=== PATIENT | female | born 1965 | race Caucasian/White ===

== ENCOUNTER → 2017-01-25 | Outpatient (CLI) | payer OTHER ==
--- NOTE | 2017-01-28 11:18 | MM ---
Reason for exam: screening (asymptomatic). Last mammogram was performed 6 years and 1 month ago. History: Family history of breast cancer in maternal grandmother. Benign stereotactic core biopsy of the right breast, August 17, 2004. Core biopsy of the right breast. Benign excisional biopsy of the left breast. Physical Findings: A clinical breast exam by your physician is recommended on an annual basis and results should be correlated with mammographic findings. MG Screening Mammo w CAD Bilateral CC and MLO view(s) were taken. Prior study comparison: December 21, 2010, bilateral digital screening mammo w/CAD. May 18, 2008, bilateral digital screening mammogram. The breast tissue is heterogeneously dense. This may lower the sensitivity of mammography. Previous mammotome biopsy in the right breast. No significant changes when compared with prior studies. ASSESSMENT: Negative, BI-RAD 1 RECOMMENDATION: Routine screening mammogram of both breasts in 1 year.
== END | disposition home or self-care (01) ==
LOC: RADMAMWWP 16:56
PROVIDERS: ATTEND Family Medicine
DX: Z12.31 Encounter for screening mammogram for malignant neoplasm of breast (principal)

== ENCOUNTER 2018-06-11 14:53 | Emergency (ER) | payer OTHER ==
[2018-06-11] MEDS ORDERED: SODIUM CHLORIDE 0.9% 1,000 ML IV STA (15:45)
--- NOTE | 2018-06-11 16:10 | XR ---
EXAMINATION TYPE: XR chest 2V DATE OF EXAM: 06/11/2018 COMPARISON: 05/08/2011 HISTORY: Weakness, loss of appetite and upper respiratory infection. TECHNIQUE: Frontal and lateral views of the chest are obtained. FINDINGS: There is no focal air space opacity, pleural effusion, or pneumothorax seen. The cardiac silhouette size is within normal limits. The osseous structures are intact. Minimal degenerative ch anges of the spine are noted. IMPRESSION: No acute cardiopulmonary process.
[2018-06-11 16:31] VITALS: RESP 18
[2018-06-11 16:37] LABS: Basophils % (A) 1 %; Eosinophils % (A) 1 %; HCT 44.5 % (34.0-46.0); HGB 14.4 gm/dL (11.4-16.0); Lymphocytes # (A) 1.3 k/uL (1.0-4.8); Lymphocytes % (A) 42 %; MCH 27.6 pg (25.0-35.0); MCHC 32.3 g/dL (31.0-37.0); MCV 85.6 fL (80.0-100.0); Mean Platelet Volume 9.6; Monocytes # (A) 0.2 k/uL (0-1.0); Monocytes % (A) 5 %; Neutrophils # (A) 1.5 k/uL (1.3-7.7); Neutrophils % (A) 49 %; Platelet Count 178 k/uL (150-450); RDW 12.6 % (11.5-15.5); WBC 3.1 k/uL (3.8-10.6)
[2018-06-11 16:43] LABS: Partial Thromboplastin Time 23.4 sec (22.0-30.0); Prothrombin Time 10.3 sec (9.0-12.0)
[2018-06-11 16:44] LABS: ALT 33 U/L (9-52); AST 32 U/L (14-36); Albumin 4.2 g/dL (3.5-5.0); Alkaline Phosphatase 45 U/L (38-126); Anion Gap 7 mmol/L; Blood Urea Nitrogen 11 mg/dL (7-17); Calcium 9.5 mg/dL (8.4-10.2); Carbon Dioxide 28 mmol/L (22-30); Chloride 106 mmol/L (98-107); Glucose 81 mg/dL (74-99); Magnesium 2.4 mg/dL (1.6-2.3); Phosphorus 3.5 mg/dL (2.5-4.5); Potassium 3.8 mmol/L (3.5-5.1); Sodium 141 mmol/L (137-145); Total Bilirubin 0.7 mg/dL (0.2-1.3)
--- NOTE | 2018-06-11 17:02 | ED ---
URI HPI - General Chief Complaint: Upper Respiratory Infection Stated Complaint: Not eating,weak Time Seen by Provider: 06/11/18 15:22 Source: patient, RN notes reviewed, old records reviewed Mode of arrival: ambulatory Limitations: no limitations - History of Present Illness Initial Comments: This is a 53-year-old female the ER for evaluation. Tissues today for evaluation regards to weakness deficit well. Patient was recently diagnosed with upper respiratory infection which is been on azithromycin 4. Breathing treatments and steroids. Patient states he does not feel well, appetite and diminished with mild weight loss due to the infection, she has not been feeling well has been weak. Denies travel history no sick contacts no current fevers. No diarrhea no nausea or vomiting, no other change in medications no new medications. MD Complaint: fever, cough, nasal congestion -: week(s) Severity: moderate Severity scale (1-10): 5 Quality: aching Consistency: constant Improves With: nothing Worsens With: nothing Context: sick contacts Associated Symptoms: rhinorrhea, nasal congestion, sore throat, weight loss Treatments Prior to Arrival: none - Related Data Home Medications Medication Instructions Recorded Confirmed LORazepam [Ativan] 1 mg PO TID PRN 05/23/15 06/11/18 Citalopram Hydrobromide [CeleXA] 40 mg PO DAILY 06/11/18 06/11/18 Allergies Allergy/AdvReac Type Severity Reaction Status Date / Time naproxen Allergy heart Verified 06/11/18 16:22 palpitations Review of Systems ROS Statement: Those systems with pertinent positive or pertinent negative responses have been documented in the HPI. ROS Other: All systems not noted in ROS Statement are negative. Past Medical History Past Medical History: GERD/Reflux Additional Past Medical History / Comment(s): lt lower abdominal pain,mitral valve prolapse when for twins now resolved,recent tx UTI May 2015 History of Any Multi-Drug Resistant Organisms: None Reported Past Surgical History: Hysterectomy Additional Past Surgical History / Comment(s): laparoscopy,(when had hysterectomy out bladder knicked and had kirkpatrick catheter for 2 weeks 2011.) Past Anesthesia/Blood Transfusion Reactions: Motion Sickness, Postoperative Nausea & Vomiting (PONV) Additional Past Anesthesia/Blood Transfusion Reaction / Comment(s): no problems with prior blood transfusion Past Psychological History: No Psychological Hx Reported Smoking Status: Never smoker Past Alcohol Use History: None Reported Past Drug Use History: None Reported - Past Family History Mother Additional Family Medical History / Comment(s): heart valve problems Father Family Medical History: No Reported History General Exam Limitations: no limitations General appearance: alert, in no apparent distress Head exam: Present: atraumatic, normocephalic, normal inspection Eye exam: Present: normal appearance, PERRL, EOMI. Absent: scleral icterus, conjunctival injection, periorbital swelling ENT exam: Present: normal exam, mucous membranes moist Neck exam: Present: normal inspection. Absent: tenderness, meningismus, lymphadenopathy Respiratory exam: Present: normal lung sounds bilaterally. Absent: respiratory distress, wheezes, rales, rhonchi, stridor Cardiovascular Exam: Present: regular rate, normal rhythm, normal heart sounds. Absent: systolic murmur, diastolic murmur, rubs, gallop, clicks GI/Abdominal exam: Present: soft, normal bowel sounds. Absent: distended, tenderness, guarding, rebound, rigid Extremities exam: Present: normal inspection, full ROM, normal capillary refill. Absent: tenderness, pedal edema, joint swelling, calf tenderness Back exam: Present: normal inspection Neurological exam: Present: alert, oriented X3, CN II-XII intact Psychiatric exam: Present: normal affect, normal mood Skin exam: Present: warm, dry, intact, normal color. Absent: rash Course Vital Signs 06/11/18 06/11/18 06/11/18 14:59 15:21 15:30 Temperature 98.1 F Pulse Rate 82 67 63 Respiratory 16 21 13 Rate Blood Pressure 109/74 O2 Sat by Pulse 96 Oximetry 06/11/18 06/11/18 06/11/18 15:40 15:50 16:00 Temperature Pulse Rate 64 63 62 Respiratory 14 20 15 Rate Blood Pressure O2 Sat by Pulse Oximetry 06/11/18 06/11/18 16:10 16:20 Temperature Pulse Rate 59 L 67 Respiratory 14 18 Rate Blood Pressure O2 Sat by Pulse 99 98 Oximetry - Reevaluation(s) Reevaluation #1: 06/11/18 18:23 Medical records reviewed Reevaluation #2: 06/11/18 18:23 Patient states she feels much improved currently just with the IV fluid here in the ER Medical Decision Making - Medical Decision Making 53 female the ER with weakness. Patient is a recent upper respiratory infection bronchitis, patient with no shortness of breath, x-ray negative for pneumonia labwork is otherwise normal. Patient can be discharged - Lab Data Result diagrams: 06/11/18 16:20 06/11/18 16:20 Lab Results 06/11/18 06/11/18 06/11/18 Range/Units 15:21 16:20 16:20 WBC 3.1 L (3.8-10.6) k/uL RBC 5.20 (3.80-5.40) m/uL Hgb 14.4 (11.4-16.0) gm/dL Hct 44.5 (34.0-46.0) % MCV 85.6 (80.0-100.0) fL MCH 27.6 (25.0-35.0) pg MCHC 32.3 (31.0-37.0) g/dL RDW 12.6 (11.5-15.5) % Plt Count 178 (150-450) k/uL Neutrophils % 49 % Lymphocytes % 42 % Monocytes % 5 % Eosinophils % 1 % Basophils % 1 % Neutrophils # 1.5 (1.3-7.7) k/uL Lymphocytes # 1.3 (1.0-4.8) k/uL Monocytes # 0.2 (0-1.0) k/uL Eosinophils # 0.0 (0-0.7) k/uL Basophils # 0.0 (0-0.2) k/uL PT (9.0-12.0) sec INR (<1.2) APTT (22.0-30.0) sec Sodium 141 (137-145) mmol/L Potassium 3.8 (3.5-5.1) mmol/L Chloride 106 (98-107) mmol/L Carbon Dioxide 28 (22-30) mmol/L Anion Gap 7 mmol/L BUN 11 (7-17) mg/dL Creatinine 0.72 (0.52-1.04) mg/dL Est GFR (CKD-EPI)AfAm >90 (>60 ml/min/1.73 sqM) Est GFR (CKD-EPI)NonAf >90 (>60 ml/min/1.73 sqM) Glucose 81 (74-99) mg/dL Calcium 9.5 (8.4-10.2) mg/dL Phosphorus 3.5 (2.5-4.5) mg/dL Magnesium 2.4 H (1.6-2.3) mg/dL Total Bilirubin 0.7 (0.2-1.3) mg/dL AST 32 (14-36) U/L ALT 33 (9-52) U/L Alkaline Phosphatase 45 (38-126) U/L Troponin I (0.000-0.034) ng/mL Total Protein 7.0 (6.3-8.2) g/dL Albumin 4.2 (3.5-5.0) g/dL TSH 1.520 (0.465-4.680) mIU/L Urine Color Urine Appearance (Clear) Urine pH (5.0-8.0) Ur Specific [place] (1.001-1.035) Urine Protein (Negative) Urine Glucose (UA) (Negative) Urine Ketones (Negative) Urine Blood (Negative) Urine Nitrite (Negative) Urine Bilirubin (Negative) Urine Urobilinogen (<2.0) mg/dL Ur Leukocyte Esterase (Negative) Influenza Type A RNA Not Detected (Not Detectd) Influenza Type B (PCR) Not Detected (Not Detectd) 06/11/18 06/11/18 06/11/18 Range/Units 16:20 16:20 17:25 WBC (3.8-10.6) k/uL RBC (3.80-5.40) m/uL Hgb (11.4-16.0) gm/dL Hct (34.0-46.0) % MCV (80.0-100.0) fL MCH (25.0-35.0) pg MCHC (31.0-37.0) g/dL RDW (11.5-15.5) % Plt Count (150-450) k/uL Neutrophils % % Lymphocytes % % Monocytes % % Eosinophils % % Basophils % % Neutrophils # (1.3-7.7) k/uL Lymphocytes # (1.0-4.8) k/uL Monocytes # (0-1.0) k/uL Eosinophils # (0-0.7) k/uL Basophils # (0-0.2) k/uL PT 10.3 (9.0-12.0) sec INR 1.0 (<1.2) APTT 23.4 (22.0-30.0) sec Sodium (137-145) mmol/L Potassium (3.5-5.1) mmol/L Chloride (98-107) mmol/L Carbon Dioxide (22-30) mmol/L Anion Gap mmol/L BUN (7-17) mg/dL Creatinine (0.52-1.04) mg/dL Est GFR (CKD-EPI)AfAm (>60 ml/min/1.73 sqM) Est GFR (CKD-EPI)NonAf (>60 ml/min/1.73 sqM) Glucose (74-99) mg/dL Calcium (8.4-10.2) mg/dL Phosphorus (2.5-4.5) mg/dL Magnesium (1.6-2.3) mg/dL Total Bilirubin (0.2-1.3) mg/dL AST (14-36) U/L ALT (9-52) U/L Alkaline Phosphatase (38-126) U/L Troponin I <0.012 (0.000-0.034) ng/mL Total Protein (6.3-8.2) g/dL Albumin (3.5-5.0) g/dL TSH (0.465-4.680) mIU/L Urine Color Light Yellow Urine Appearance Clear (Clear) Urine pH 6.5 (5.0-8.0) Ur Specific [place] 1.003 (1.001-1.035) Urine Protein Negative (Negative) Urine Glucose (UA) Negative (Negative) Urine Ketones Negative (Negative) Urine Blood Negative (Negative) Urine Nitrite Negative (Negative) Urine Bilirubin Negative (Negative) Urine Urobilinogen <2.0 (<2.0) mg/dL Ur Leukocyte Esterase Negative (Negative) Influenza Type A RNA (Not Detectd) Influenza Type B (PCR) (Not Detectd) - EKG Data -: EKG Interpreted by Me (EKG shows NSR rate of 61 [place] 120 QTc 412) - Radiology Data Radiology results: report reviewed (Chest x-rays negative for acute disease), image reviewed Disposition Clinical Impression: Weakness Disposition: HOME SELF-CARE Condition: Good Instructions (If sedation given, give patient instructions): Weakness (ED) Is patient prescribed a controlled substance at d/c from ED?: No Referrals: Gonzalo Elmore DO [Primary Care Provider] - 1-2 days
[2018-06-11 17:43] LABS: Appearance,Urine Clear (Clear); Bilirubin,Urine Negative (Negative); Blood,Urine Negative (Negative); Color,Urine Light Yellow; Glucose,Urine (UA) Negative (Negative); Ketones,Urine Negative (Negative); Leukocyte Esterase,Urine Negative (Negative); Nitrite,Urine Negative (Negative); PH, Urine 6.5 (5.0-8.0); Protein,Urine Negative (Negative); Specific Gravity,Urine 1.003 (1.001-1.035); Urobilinogen,Urine <2.0 mg/dL (<2.0)
[2018-06-11] MEDS ORDERED: DEXAMETHASONE SOD PHOSPHATE 10 MG/ML 1 ML VIAL IV STA (18:24)
[2018-06-11 18:44] VITALS: BP 121/79; PULSE 60; TEMP 98.6
== END 2018-06-11 18:42 | disposition home or self-care (01) ==
LOC: EC 14:53
DX: R53.1 Weakness (principal); R50.9 Fever, unspecified; R09.81 Nasal congestion; J34.89 Other specified disorders of nose and nasal sinuses; Z79.899 Other long term (current) drug therapy; Z88.6 Allergy status to analgesic agent; Z90.710 Acquired absence of both cervix and uterus
CPT/HCPCS: 36415; 93005; 80053; 83735; 84100; 84443; 84484; 85025; 85610; 85730; 81003; 87502; 71046; 99285; J1100

== ENCOUNTER → 2020-02-02 | Outpatient (CLI) | payer OTHER ==
--- NOTE | 2020-02-03 08:50 | BD ---
EXAMINATION TYPE: Axial Bone Density DATE OF EXAM: 02/02/2020 COMPARISON: NONE CLINICAL HISTORY: Height: 62.5 IN Weight: 141 LBS RISK FACTORS HISTORY OF: Postmenopausal woman: AGE 46 MEDICATIONS: Additional Medications: CELEXA, ATIVAN, EXAM MEASUREMENTS: Bone mineral densitometry was performed using the [employer] System. Bone mineral density as measured about the Lumbar spine is: ----- L1-L4(G/cm2): 1.035 T Score Values are as follows: ----- L2: -1.0 ----- L3: -1.1 ----- L4: -1.8 ----- L1-L4: -1.2 Bone mineral density BASELINE Bone mineral density about the R hip (g/cm2): 0.709 Bone mineral density about the L hip (g/cm2): 0.720 T Score values are as follows: -----R Neck: -2.4 -----L Neck: -2.3 -----R Total: -1.6 -----L Total: -1.8 Bone mineral density BASELINE IMPRESSION: Osteopenia NOTE: T-SCORE=SD OF THE YOUNG ADULT MEAN.
--- NOTE | 2020-02-03 09:49 | MM ---
Reason for exam: screening (asymptomatic). Last mammogram was performed 3 years ago. History: Family history of breast cancer in maternal grandmother. Benign stereotactic core biopsy of the right breast, August 17, 2004. Core biopsy of the right breast. Benign excisional biopsy of the left breast. Physical Findings: A clinical breast exam by your physician is recommended on an annual basis and results should be correlated with mammographic findings. MG Screening Mammo w CAD Bilateral CC and MLO view(s) were taken. Prior study comparison: January 25, 2017, bilateral MG screening mammo w CAD. December 21, 2010, bilateral digital screening mammo w/CAD. The breast tissue is heterogeneously dense. This may lower the sensitivity of mammography. There is no discrete abnormality. No significant changes when compared with prior studies. ASSESSMENT: Negative, BI-RAD 1 RECOMMENDATION: Routine screening mammogram of both breasts in 1 year.
== END | disposition home or self-care (01) ==
LOC: RADMAMWWP 14:28
PROVIDERS: ATTEND Family Medicine
DX: Z12.31 Encounter for screening mammogram for malignant neoplasm of breast (principal); M85.80 Other specified disorders of bone density and structure, unspecified site; M81.0 Age-related osteoporosis without current pathological fracture
CPT/HCPCS: 77067; 77080

== ENCOUNTER 2023-09-20 11:32 | Emergency (ER) | payer OTHER ==
[2023-09-20 11:38] VITALS: RESP 18
[2023-09-20] MEDS: LIDOCAINE 1% INJ 10MG/ML (20 ML MDV) SQ ONE (12:41)
[2023-09-20] MEDS: DIPH,PERTUS(ACELL)TETVAC-LF 0.5 ML VIAL IM ONE (12:43)
[2023-09-20 12:58] VITALS: BP 146/78; PULSE 76; TEMP 98.1
--- NOTE | 2023-09-20 13:02 | ED ---
Animal Bite HPI - General Chief Complaint: Animal Bite Stated Complaint: Dog bite injury Time Seen by Provider: 09/20/23 11:52 Source: patient, RN notes reviewed Mode of arrival: ambulatory Limitations: no limitations - History of Present Illness Initial Comments: 58-year-old female presenting with dog bite 30 minutes prior to arrival. States her dog accidentally got out of the house and the patient ran out of the house to retrieve her. Patient states that the neighbors dog ran into their yard and bit the patient several times on the right thigh and on the right forearm. Patient states the dog is a large pitbull. The dog is fully vaccinated. Patient is able to ambulate well. Denies other injuries. - Related Data Home Medications Medication Instructions Recorded Confirmed LORazepam [Ativan] 1 mg PO TID PRN 05/23/15 06/11/18 Citalopram Hydrobromide [CeleXA] 40 mg PO DAILY 06/11/18 06/11/18 Previous Rx's Medication Instructions Recorded Amoxic-Pot Clav 875-125Mg 1 tab PO Q12HR #20 tab 09/20/23 [Augmentin 875-125] Allergies Allergy/AdvReac Type Severity Reaction Status Date / Time naproxen Allergy heart Verified 09/20/23 11:38 palpitations Review of Systems ROS Statement: Those systems with pertinent positive or pertinent negative responses have been documented in the HPI. ROS Other: All systems not noted in ROS Statement are negative. Past Medical History Past Medical History: GERD/Reflux Additional Past Medical History / Comment(s): lt lower abdominal pain,mitral valve prolapse when for twins now resolved,recent tx UTI May 2015 History of Any Multi-Drug Resistant Organisms: None Reported Past Surgical History: Hysterectomy Additional Past Surgical History / Comment(s): laparoscopy,(when had hysterectomy out bladder knicked and had kirkpatrick catheter for 2 weeks 2011.) Past Anesthesia/Blood Transfusion Reactions: Motion Sickness, Postoperative Nausea & Vomiting (PONV) Additional Past Anesthesia/Blood Transfusion Reaction / Comment(s): no problems with prior blood transfusion Past Psychological History: No Psychological Hx Reported Smoking Status: Never smoker Past Alcohol Use History: None Reported Past Drug Use History: None Reported - Past Family History Mother Additional Family Medical History / Comment(s): heart valve problems Father Family Medical History: No Reported History General Exam Limitations: no limitations General appearance: alert, in no apparent distress Head exam: Present: atraumatic, normocephalic, normal inspection Eye exam: Present: normal appearance, PERRL, EOMI. Absent: scleral icterus, conjunctival injection, periorbital swelling Right Upper Arm exam: Present: normal inspection, full ROM. Absent: tenderness, swelling Elbow exam: Present: normal inspection, full ROM. Absent: tenderness, swelling Forearm Wrist exam: Present: full ROM, abrasion (Few scattered abrasions present on distal forearm. No active bleeding or lacerations). Absent: tenderness, swelling Hand Wrist exam: Present: normal inspection, full ROM. Absent: tenderness, swelling Right Hip exam: Present: normal inspection, full ROM. Absent: tenderness, swelling Upper Leg exam: Present: full ROM, laceration (6 cm laceration present on anterior aspect of proximal thigh. Subcutaneous tissue is protruding through entire wound. No active bleeding. There are scattered abrasions present on dorsal proximal thigh, no active bleeding or lacerations.). Absent: tenderness Knee exam: Present: normal inspection, full ROM. Absent: tenderness, swelling Lower Leg exam: Present: normal inspection, full ROM. Absent: tenderness, swelling Neurovascular tendon exam: Present: no vascular compromise. Absent: pulse deficit, abnormal cap refill, motor deficit, sensory deficit Course Vital Signs 09/20/23 09/20/23 11:34 12:56 Temperature 97.6 F 98.1 F Pulse Rate 83 76 Respiratory 18 18 Rate Blood Pressure 150/85 146/78 O2 Sat by Pulse 98 98 Oximetry Procedures - Laceration Laceration #1 Consent Obtained: verbal consent Indication: laceration Site: lower extremity Size (cm): 6 Description: linear Depth: simple, single layer Anesthetic Used: lidocaine 1%, without epi Amount (mls): 4 Pre-repair: wound explored, irrigated extensively, deep structures intact Type of Sutures: nylon Size of Sutures: 4-0 Number of Sutures: 4 Technique: simple, interrupted Patient Tolerated Procedure: well, no complications Additional Comments: Wound thoroughly irrigated on anterior and posterior thigh as well as right forearm. Neurovascularly intact status post procedure Medical Decision Making - Medical Decision Making Was pt. sent in by a medical professional or institution (, PA, [facility] [employer], urgent care, hospital, or senior care...) When possible be specific @ -No Did you speak to anyone other than the patient for history (EMS, parent, family, police, friend...)? What history was obtained from this source @ -No Did you review nursing and triage notes (agree or disagree)? Why? @ -I reviewed and agree with nursing and triage notes Were old charts reviewed (outside hosp., previous admission, EMS record, old EKG, old radiological studies, urgent care reports/EKG's, senior care records)? Report findings @ -No old charts were reviewed Differential Diagnosis (chest pain, altered mental status, abdominal pain women, abdominal pain men, vaginal bleeding, weakness, fever, dyspnea, syncope, headache, dizziness, GI bleed, back pain, seizure, CVA, palpatations, mental health, musculoskeletal)? @ -Differential Musculoskeletal Dog bite, laceration, cellulitis, abscess, rabies, muscular strain, contusion, ligament sprain, fracture, arthritis, septic arthritis, bursitis, cellulitis, muscle spasm, nerve compression, DVT, arterial occlusion, herpes zoster, electrolyte abnormality, tumor.... This is not meant to be in all inclusive list EKG interpreted by me (3pts min.). @ -None X-rays interpreted by me (1pt min.). @ -None done CT interpreted by me (1pt min.). @ -None done U/S interpreted by me (1pt. min.). @ -None done What testing was considered but not performed or refused? (CT, X-rays, U/S, labs)? Why? @ -Imaging not performed due to low suspicion for fracture at this time What meds were considered but not given or refused? Why? @ -None Did you discuss the management of the patient with other professionals (professionals i.e. , PA, [facility] [facility], lab, RT, psych nurse, director social welfare, car sealer, teacher, correction officer reformatory, social work case manager)? Give summary @ -No Was smoking cessation discussed for >3mins.? @ -No Was critical care preformed (if so, how long)? @ -No Were there social determinants of health that impacted care today? How? (Homelessness, low income, unemployed, alcoholism, drug addiction, transportation, low edu. Level, literacy, decrease access to med. care, custodial, rehab)? @ -No Was there de-escalation of care discussed even if they declined (Discuss DNR or withdrawal of care, Hospice)? DNR status @ -No What co-morbidities impacted this encounter? (DM, HTN, Smoking, COPD, CAD, Cancer, CVA, ARF, Chemo, Hep., AIDS, mental health diagnosis, sleep apnea, morbid obesity)? @ -None Was patient admitted / discharged? Hospital course, mention meds given and route, prescriptions, significant lab abnormalities, going to OR and other pertinent info. @ -Patient was discharged. Patient was seen and evaluated for dog bite 30 minutes prior to arrival. Dog is neighbors pet and is fully vaccinated. Physical examination reveals 6 cm laceration present on the anterior aspect of right proximal thigh with subcutaneous tissue protruding through the entire wound. Wounds are thoroughly irrigated. Loosely approximated sutures performed and tolerated well. Neurovascularly intact status post procedure. Tetanus was updated. Wound care discussed. Prescribed Augmentin. Strict return/alarm symptoms discussed with patient in detail and she shows understanding and agrees with plan. Advised to follow-up in 7 days for suture removal. Case discussed with Dr. Fair. Patient discharged in stable condition. Undiagnosed new problem with uncertain prognosis? @ -No Drug Therapy requiring intensive monitoring for toxicity (Heparin, Nitro, Insulin, Cardizem)? @ -No Were any procedures done? @ -Loosely approximated sutures performed Diagnosis/symptom? @ -Dog bite to right thigh Acute, or Chronic, or Acute on Chronic? @ -Acute Uncomplicated (without systemic symptoms) or Complicated (systemic symptoms)? @ -Uncomplicated Side effects of treatment? @ -No Exacerbation, Progression, or Severe Exacerbation? @ -No Poses a threat to life or bodily function? How? (Chest pain, [place], CA, pneumonia, PE, COPD, DKA, ARF, appy, cholecystitis, CVA, Diverticulitis, Homicidal, Suicidal, threat to staff... and all critical care pts) @ -Low likelihood Disposition Clinical Impression: Dog bite Disposition: HOME SELF-CARE Condition: Stable Instructions (If sedation given, give patient instructions): Animal Bite (ED) Additional Instructions: Please take Augmentin as prescribed. Keep wound dry for 24 hours, then you may gently wash with antibacterial soap and water. You can apply bacitracin or Neosporin twice daily to affected area. Follow-up in 7 days for suture removal. Please return to the Emergency Department if symptoms worsen or any other concerns. Prescriptions: Amoxic-Pot Clav 875-125Mg [Augmentin 875-125] 1 tab PO Q12HR #20 tab Is patient prescribed a controlled substance at d/c from ED?: No Referrals: Gonzalo Elmore DO [Primary Care Provider] - 1-2 days Time of Disposition: 13:02
== END 2023-09-20 12:56 | disposition home or self-care (01) ==
LOC: EC 11:32
DX: S71.111A Laceration without foreign body, right thigh, initial encounter (principal); Z88.8 Allergy status to other drugs, medicaments and biological substances; W54.0XXA Bitten by dog, initial encounter
CPT/HCPCS: 99283; 12002; 90715; 90471; J2001

== ENCOUNTER → 2024-09-29 | Outpatient (CLI) | payer OTHER ==
--- NOTE | 2024-09-29 14:34 | MM ---
Reason for Exam: Screening (asymptomatic). Last mammogram was performed 4 year(s) and 8 month(s) ago. Patient History: Menarche at age 13. First Full-Term at age 22. Postmenopausal. Benign Excisional Biopsy on the left side. Core Biopsy on the Right side. 08/17/2004, Benign Stereotactic Core Biopsy on the right side. Maternal grandmother had breast cancer. Risk Values: [place] 5 year model risk: 1.8%. NCI Lifetime model risk: 8.7%. Prior Study Comparison: 12/21/2010 Bilateral Screening Mammogram, [facility]. 01/25/2017 Bilateral Screening Mammogram, [facility]. 02/02/2020 Bilateral Screening Mammogram, [facility]. Tissue Density: The breasts are heterogeneously dense, which may obscure small masses. Findings: Analyzed By CAD. There is no suspicious group of microcalcifications or new suspicious mass in either breast. Overall Assessment: Benign, BI-RAD 2 Management: Screening Mammogram of both breasts in 1 year. . Patient should continue monthly self-breast exams. A clinical breast exam by your physician is recommended on an annual basis. This exam should not preclude additional follow-up of suspicious palpable abnormalities. Note on Alexandria scores and lifetime risk: 1. A Alexandria score greater than 3% is considered moderate risk. If this is the case, consider specialist referral to assess eligibility for a risk reducing agent. 2. If overall lifetime risk for the development of breast cancer is 20% or higher, the patient may qualify for future screening with alternating mammogram and breast MRI. [facility], , 09/29/2024 2:31 PM. Electronically signed and approved by: Thomas Emanuel M.D. [facility]
== END | disposition home or self-care (01) ==
LOC: RADMAMWWP 13:06
PROVIDERS: ATTEND Family Medicine
DX: Z12.31 Encounter for screening mammogram for malignant neoplasm of breast (principal); R92.333 Mammographic heterogeneous density, bilateral breasts; Z78.0 Asymptomatic menopausal state; Z80.3 Family history of malignant neoplasm of breast
CPT/HCPCS: 77067